=== PATIENT | female | born 1970 | race Caucasian/White ===

== ENCOUNTER → 2017-12-14 21:42 | Outpatient (CLI) | payer BC | END | disposition home or self-care (01) | LOC: D.MAMMO 13:30 | DX: Z12.31 Encounter for screening mammogram for malignant neoplasm of breast (principal) ==

== ENCOUNTER → 2018-12-09 15:12 | Outpatient (CLI) | payer BC | END | disposition home or self-care (01) | LOC: D.CT 15:12 | PROVIDERS: ATTEND Internal Medicine Gastroenterology | DX: R10.32 Left lower quadrant pain (principal); M54.5 Low back pain ==

== ENCOUNTER 2018-12-20 19:00 | Outpatient (CLI) | payer BC | END 2018-12-20 23:59 | disposition home or self-care (01) | LOC: D.MAMMO 19:00 | PROVIDERS: ATTEND Internal Medicine Gastroenterology | DX: Z12.31 Encounter for screening mammogram for malignant neoplasm of breast (principal) ==

== ENCOUNTER 2019-01-09 18:16 | Emergency (ER) | payer BC ==
[~2019-01-09] VITALS: Ht 165.1 cm; Wt 97.3 kg
[2019-01-09 18:25] VITALS: Ht 165.1 cm; Wt 97.3 kg
[2019-01-09 19:51] LABS: APPEARANCE CLEAR (CLEAR); BILIRUBIN NEGATIVE (NEGATIVE); COLOR STRAW (YELLOW); GLUCOSE NEGATIVE (NEGATIVE); KETONE NEGATIVE (NEGATIVE); NITRITE NEGATIVE (NEGATIVE); PROTEIN 2+ mg/dL (NEGATIVE); SPECIFIC GRAVITY 1.015 (1.005-1.020); UROBILINOGEN NORMAL (NORMAL)
[2019-01-09 19:52] LABS: BACTERIA MANY /hpf (NONE SEEN); MUCUS <1+ /lpf (NONE SEEN)
[2019-01-09 20:29] VITALS: BP 137/82
== END 2019-01-09 20:30 | disposition home or self-care (01) ==
LOC: D.ER 18:16
PROVIDERS: Emergency Medicine
DX: S16.1XXA Strain of muscle, fascia and tendon at neck level, initial encounter (principal); S20.219A Contusion of unspecified front wall of thorax, initial encounter

== ENCOUNTER 2020-01-08 20:52 | Inpatient (IN) | payer BC ==
[~2020-01-08] VITALS: Ht 165.1 cm; Wt 84.9 kg
--- NOTE | 2020-01-08 21:08 | NUR ---
PT STATES STOOL CULTURES WERE DONE AT [facility] AND RESULTED NORMAL/NEGATIVE
[2020-01-08] MEDS ORDERED: FLORASTOR250 MG PO (21:29)
[2020-01-08 21:40] LABS: BASOPHILS 0.1 % (0-2); EOSINOPHILS 1.2 % (0-7); HEMATOCRIT 45.2 % (36.0-48.0); HEMOGLOBIN 15.6 g/dL (12-16); IMMATURE GRANULOCYTES 0.1 % (0-5); LYMPHOCYTES 32.5 % (15-50); MCH 29.9 pg (26.0-34.0); MCHC 34.5 g/dL (31.0-37.0); MCV 86.8 fL (80.0-100.0); MEAN PLATELET VOLUME 9.7 fL (7.4-10.4); MONOCYTES 8.5 % (2-11); NEUTROPHILS 57.6 % (40-80); PLATELET COUNT 257 10x3/uL (130-400); RBC 5.21 10x6/uL (4.00-5.40); RDW 13.4 % (11.5-14.5); WBC 8.4 10x3/uL (4.8-10.8)
[2020-01-08 21:42] LABS: BACTERIA FEW /hpf (NEGATIVE); BILIRUBIN NEGATIVE (NEGATIVE); EPITHELIAL CELLS 0-5 /hpf (0-5); GLUCOSE NEGATIVE (NEGATIVE); KETONE NEGATIVE (NEGATIVE); NITRITE NEGATIVE (NEGATIVE); RED CELLS - URINE 0-5 /hpf (0-5); SPECIFIC GRAVITY 1.005 (1.005-1.020); UROBILINOGEN NORMAL (NORMAL)
[2020-01-08 21:43] LABS: HCG URINE NEGATIVE (NEGATIVE)
[2020-01-08 22:24] LABS: ALBUMIN 4.3 g/dL (3.4-5.0); ALKALINE PHOSPHATASE 70 U/L (30-120); ALT (SGPT) 60 U/L (10-68); AMYLASE - SERUM 46 U/L (25-115); BILIRUBIN - TOTAL 1.09 mg/dL (0.2-1.3); CALC OSMOLALITY 278 mosm/kg (275-300); CARBON DIOXIDE 29.9 mmol/L (21.0-32.0); CHLORIDE - SERUM 101 mmol/L (98-107); GLUCOSE 111 mg/dL (74-106); LIPASE 95 U/L (73-393); PROTEIN - SERUM 7.2 g/dL (6.4-8.2); SODIUM 141 mmol/L (136-145); UREA NITROGEN 4 mg/dL (7-18); eGFR NON AFRICAN AMERICAN 63 mL/min (90-120)
[2020-01-08 22:26] LABS: POTASSIUM - SERUM 2.7 mmol/L (3.5-5.1); TROPONIN-I < 0.017 ng/mL (0.000-0.060)
--- NOTE | 2020-01-09 00:40 | NUR ---
ARIVED VIA BED AND SETTLED IN ROOM OBSERVING DROPLET PRECAUTIONS BED LOW AND LOCKED CALL LIGHT GIVEN TO PT IV SET TO 100
--- NOTE | 2020-01-09 02:58 | NUR ---
I have reviewed this patient and I concur with the Shift Assessment completed by the Licensed Practical Nurse today this shift.
--- NOTE | 2020-01-09 03:27 | NUR ---
ORDERS RECIEVED AND NOTED PT HAS NO BATISTA AND DOES NOT QUALIFY FOR ONE PT IS UP AMBLITORY AROUND ROOM AND REFUSES SCD WILL APPLY tELLEMETRY
[2020-01-09 05:13] LABS: BASOPHILS 0.2 % (0-2); EOSINOPHILS 1.4 % (0-7); HEMATOCRIT 44.6 % (36.0-48.0); IMMATURE GRANULOCYTES 0.1 % (0-5); LYMPHOCYTES 39.9 % (15-50); MCH 29.6 pg (26.0-34.0); MCHC 33.6 g/dL (31.0-37.0); MEAN PLATELET VOLUME 9.9 fL (7.4-10.4); MONOCYTES 10.1 % (2-11); NEUTROPHILS 48.3 % (40-80); PLATELET COUNT 247 10x3/uL (130-400); RBC 5.07 10x6/uL (4.00-5.40); RDW 13.6 % (11.5-14.5); WBC 8.5 10x3/uL (4.8-10.8)
[2020-01-09 05:27] LABS: CALC OSMOLALITY 280 mosm/kg (275-300); CALCIUM 8.9 mg/dL (8.5-10.1); CARBON DIOXIDE 31.5 mmol/L (21.0-32.0); CHLORIDE - SERUM 103 mmol/L (98-107); CREATININE - SERUM 0.8 mg/dL (0.6-1.3); GLUCOSE 98 mg/dL (74-106); MAGNESIUM - SERUM 1.7 mg/dL (1.8-2.4); POTASSIUM - SERUM 3.1 mmol/L (3.5-5.1); SODIUM 143 mmol/L (136-145); eGFR NON AFRICAN AMERICAN 81 mL/min (90-120)
[2020-01-09 05:28] LABS: UREA NITROGEN 1 mg/dL (7-18)
[2020-01-09 08:46] VITALS: BP 128/78
[2020-01-09 12:48] LABS: UDS - AMPHET NEGATIVE QUAL (NEGATIVE); UDS - BARB NEGATIVE QUAL (NEGATIVE); UDS - BENZO NEGATIVE QUAL (NEGATIVE); UDS - COCAINE NEGATIVE QUAL (NEGATIVE); UDS - OPIATE POSITIVE QUAL (NEGATIVE); UDS - PCP NEGATIVE QUAL (NEGATIVE); UDS - THC NEGATIVE QUAL (NEGATIVE)
[2020-01-09 14:17] VITALS: Ht 165.1 cm; Wt 84.9 kg
--- NOTE | 2020-01-09 19:22 | NUR ---
RECEIVED UP IN BED WITH EYES OPEN AND TV ON. ALERT AND ORIENTED X4. C/O HAVING LOOSE STOOL X1. IV TO RT WRIST WITH NS AT 75CC/HR. TELEMETRY IN PLACE. LABS DRAWN FOR POTASSIUM LEVEL.
[2020-01-09 20:50] VITALS: BP 136/76
--- NOTE | 2020-01-09 20:57 | NUR ---
REFUSED MORPHINE STATED " I DON'T LIKE THE WAY IT MAKES ME FEEL. THE ER DOCTOR GAVE IT TO ME FOR MY DIAHRREA". MORPHINE WASTED WITH WITTNESS.
[2020-01-09 21:29] VITALS: BP 159/91
[2020-01-10 05:15] VITALS: BP 146/90
[2020-01-10 06:37] LABS: BASOPHILS 0.3 % (0-2); EOSINOPHILS 3.6 % (0-7); HEMATOCRIT 46.1 % (36.0-48.0); HEMOGLOBIN 15.1 g/dL (12-16); IMMATURE GRANULOCYTES 0.2 % (0-5); LYMPHOCYTES 30.4 % (15-50); MCH 29.4 pg (26.0-34.0); MCHC 32.8 g/dL (31.0-37.0); MCV 89.9 fL (80.0-100.0); MEAN PLATELET VOLUME 9.8 fL (7.4-10.4); MONOCYTES 10.2 % (2-11); NEUTROPHILS 55.3 % (40-80); PLATELET COUNT 226 10x3/uL (130-400); RBC 5.13 10x6/uL (4.00-5.40); RDW 13.8 % (11.5-14.5)
[2020-01-10 06:41] LABS: WBC 5.8 10x3/uL (4.8-10.8)
[2020-01-10 06:46] LABS: ANION GAP 8.5 mmol/L (8-16); CARBON DIOXIDE 30.3 mmol/L (21.0-32.0); CREATININE - SERUM 0.9 mg/dL (0.6-1.3); MAGNESIUM - SERUM 2.1 mg/dL (1.8-2.4); POTASSIUM - SERUM 3.8 mmol/L (3.5-5.1)
[2020-01-10] MEDS ORDERED: LEVOFLOXACIN500 MG PO (08:47)
[2020-01-10] MEDS ORDERED: FLAGYL500 MG PO (08:47)
[2020-01-10 08:51] VITALS: BP 133/92
--- NOTE | 2020-01-10 09:23 | MORECARE ---
CASE MANAGEMENT DISCHARGE SUMMARY PATIENT: JIM TAFOYA UNIT: [id number] ADM DATE: 01/08/20 AGE: 49 : 72 SEX: F ROOM/BED: D.1299 AUTHOR: ELIZABETHDOC PHYSICIAN: REFERRING PHYSICIAN: BREANNE BUSTILLOS MD DATE OF SERVICE: 01/10/20 Discharge Plan Patient Name: JIM TAFOYA Facility: [facility]:[place] : 1970 Planned Disposition: Home or Self Care Anticipated Discharge Date: Discharge Date: Expected LOS: Initial Reviewer: [email or web address] Initial Review Date: 01/09/2020 Generated: 01/10/20 10:22 am Comments DCP- Discharge Planning Updated by [email or web address]: Yolanda Hernandez on 01/10/20 8:[address] Patient Name: JIM TAFOYA Admission Status: ER Accout number: [id number] Admission Date: 01-08-2020 : 1970 Admission Diagnosis:COVID-19 Attending: BREANNE BUSTILLOS Current LOS: 2 Anticipated DC Date: Planned Disposition: Home or Self Care Primary Insurance: B[employer]NLIFE Discharge Planning Comments: CM spoke with patient about discharged needs and plan. Patient lives independently at home and her mother lives with her. She plans on driving herself home today. She stated that she feels safe to drive. She is independent with her care and denies any needs from a CM standpoint. CM will continue to assist as needed. Phone Counselor: Yolanda Hernandez DCPIA - Discharge Planning Initial Assessment Updated by [email or web address]: Yolanda Hernandez on 01/10/20 9:16 am * Is the patient Alert and Oriented? Yes * PCP [facility] * Pharmacy [facility] * Preadmission Environment Home with Family * ADLs Independent * Equipment None * List name and contact numbers for known caregivers / representatives who currently or will assist patient after discharge: BARB GALAN [phone] * Verbal permission to speak to the caregivers and representatives has been obtained from the patient. N/A * Community resources currently utilized None * Additional services required to return to the preadmission environment? No * Can the patient safely return to the preadmission environment? Yes * Has this patient been hospitalized within the prior 30 days at any hospital? No Patient Name: JIM TAFOYA Page [id number] at 0923 All edits/amendments must be made on the electronic document DICTATION DATE: 01/10/20921 BENCH MOVER: GENARO 01/10/20921 RPT#: [id number] DC DATE: STATUS: ADM IN [facility] [address] [place] [address] END OF REPORT
--- NOTE | 2020-01-10 10:58 | NUR ---
D/C INSTRUCTIONS REVIEWED WITH PT. VERBALIZED UNDERSTANDING. PT LEFT WITH ALL BELONGINGS VIA WHEELCHAIR . IV D/C WITH CATHETER TIP INTACT. MONITOR REMOVED AND RETURNED TO IMAGING AIDE.
--- NOTE | 2020-01-11 16:22 | MORECARE ---
CASE MANAGEMENT DISCHARGE SUMMARY PATIENT: JIM TAFOYA UNIT: [id number] ADM DATE: 01/08/20 AGE: 49 : 72 SEX: F ROOM/BED: D.5229 AUTHOR: ELIZABETH,DOC PHYSICIAN: REFERRING PHYSICIAN: BREANNE BUSTILLOS MD DATE OF SERVICE: 01/11/20 Discharge Plan Patient Name: JIM TAFOYA Facility: [facility]:[place] : 1970 Planned Disposition: Home or Self Care Anticipated Discharge Date: Discharge Date: 01/10/2020 Expected LOS: Initial Reviewer: [email or web address] Initial Review Date: 01/09/2020 Generated: 01/11/20 5:21 pm Comments DCP- Discharge Planning Updated by [email or web address]: Yolanda Hernandez on 01/10/20 8:[address] Patient Name: JIM TAFOYA Admission Status: ER Accout number: [id number] Admission Date: 01-08-2020 : 1970 Admission Diagnosis:COVID-19 Attending: BREANNE BUSTILLOS Current LOS: 2 Anticipated DC Date: Planned Disposition: Home or Self Care Primary Insurance: BCTNLIFE Discharge Planning Comments: CM spoke with patient about discharged needs and plan. Patient lives independently at home and her mother lives with her. She plans on driving herself home today. She stated that she feels safe to drive. She is independent with her care and denies any needs from a CM standpoint. CM will continue to assist as needed. Business Segment Manager: Yolanda Hernandez DCPIA - Discharge Planning Initial Assessment Updated by [email or web address]: Yolanda Hernandez on 01/10/20 9:16 am * Is the patient Alert and Oriented? Yes * PCP [facility] * Pharmacy [facility] * Preadmission Environment Home with Family * ADLs Independent * Equipment None * List name and contact numbers for known caregivers / representatives who currently or will assist patient after discharge: BARB GALAN [phone] * Verbal permission to speak to the caregivers and representatives has been obtained from the patient. N/A * Community resources currently utilized None * Additional services required to return to the preadmission environment? No * Can the patient safely return to the preadmission environment? Yes * Has this patient been hospitalized within the prior 30 days at any hospital? No Last DP export: 01/10/20 8:23 a Patient Name: JIM TAFOYA Page [id number] at 1622 All edits/amendments must be made on the electronic document DICTATION DATE: 01/11/201621 DIRECTOR CHILD: GENARO 01/11/201621 RPT#: [id number] DC DATE:01/10/20 STATUS: DIS IN [facility] [address] [place] [address] END OF REPORT
[2020-01-13 15:09] LABS: OVA + PARASITE EXAM Final report (())
== END 2020-01-10 11:01 | disposition home or self-care (01) | DRG 178 ==
LOC: D.ER 20:52 → D.M2 23:36
PROVIDERS: Family Medicine; ADMIT Internal Medicine Nephrology; ATTEND Internal Medicine Nephrology
DX: U07.1 COVID-19 (principal); N39.0 Urinary tract infection, site not specified; N17.9 Acute kidney failure, unspecified; E86.0 Dehydration; E87.6 Hypokalemia

== ENCOUNTER 2020-06-18 15:30 | Outpatient (CLI) | payer BC ==
[2020-01-09 14:17] VITALS: BMI 31.1
[~2020-06-18 15:30] MED LIST: FLAGYL500 MG PO; FLORASTOR250 MG PO; LEVOFLOXACIN500 MG PO
== END 2020-06-18 23:59 | disposition home or self-care (01) ==
LOC: D.MAMMO 15:30
PROVIDERS: ATTEND Nurse Practitioner
DX: Z12.31 Encounter for screening mammogram for malignant neoplasm of breast (principal)

== ENCOUNTER → 2020-06-25 12:29 | Outpatient (CLI) | payer BC ==
[2020-01-09 14:17] VITALS: BMI 31.1
[2020-06-25 13:12] LABS: ALBUMIN 4.2 g/dL (3.4-5.0); ALKALINE PHOSPHATASE 68 U/L (30-120); ALT (SGPT) 29 U/L (10-68); BILIRUBIN - DIRECT 0.13 mg/dL (0.00-0.30); BILIRUBIN - INDIRECT 0.48 mg/dL (0.00-1.00); BILIRUBIN - TOTAL 0.61 mg/dL (0.2-1.3)
[2020-06-25 13:13] LABS: C-REACTIVE PROTEIN < 0.2 mg/dL (0.0-0.9)
[2020-06-25 13:52] LABS: ERYTHROCYTE SEDIMENTATION RATE 5 mm/hr (0-20)
== END | disposition home or self-care (01) ==
LOC: D.CT 12:29
PROVIDERS: ATTEND Family Medicine
DX: J32.0 Chronic maxillary sinusitis (principal); R19.7 Diarrhea, unspecified; K76.0 Fatty (change of) liver, not elsewhere classified; R09.81 Nasal congestion; R53.83 Other fatigue

== ENCOUNTER → 2020-07-01 22:38 | Outpatient (CLI) | payer BC ==
[2020-01-09 14:17] VITALS: BMI 31.1
== END | disposition home or self-care (01) ==
LOC: D.MAMMO 10:00
PROVIDERS: ATTEND Internal Medicine Gastroenterology
DX: R92.8 Other abnormal and inconclusive findings on diagnostic imaging of breast (principal)